=== PATIENT | male | born 1970 | race Caucasian/White ===

== ENCOUNTER 2021-01-04 11:41 | Outpatient (CLI) | payer OTHER, SELFPAY ==
--- NOTE | ~2021-01-04 | XR_ITS ---
EXAMINATION: XR chest 2V EXAM DATE: 01/04/2021 12:03 INDICATION: Essential hypertension. TECHNIQUE: Frontal and lateral projections of the chest obtained and reviewed. Comparison is made to prior examination from 10/20/2010. FINDINGS: The lungs are clear. There are no pleural effusions. The cardiomediastinal silhouette is within normal limits. There is no pneumothorax suspected. The bones and soft tissues are unremarkab le. IMPRESSION: No acute cardiopulmonary findings. Reviewed, dictated and finalized at location A.
== END 2021-01-04 11:42 | disposition home or self-care (01) ==
LOC: ANHIMG 11:51
PROVIDERS: PCP Physician Assistant; Visit Provider Physician Assistant
DX: I10 Essential (primary) hypertension (principal)
CPT/HCPCS: 71046

== ENCOUNTER 2022-01-10 10:57 | Emergency (ER) | payer OTHER, SELFPAY ==
--- NOTE | ~2022-01-10 | XR_ITS ---
EXAMINATION: XR tibia fibula LT 2V DATE: 01/10/2022 11:47 INDICATION: Lateral left lower leg pain 2 weeks post twisting injury TECHNIQUE: Anteroposterior and lateral views of the left tibia and fibula were obtained. COMPARISON: None. FINDINGS: Bone alignment is normal. No fracture. Joint spaces at the left knee, ankle and visualized mid and hi ndfoot are normal. No left knee or ankle joint effusion. Small plantar calcaneal spur. Focal mild sof t tissue swelling at the lateral aspect of the distal left calf potentially related to an underlying pain in the subcutaneous tissues. IMPRESSION: 1. No acute osseous abnormality. Reviewed, dictated and finalized at location A.
[2022-01-10 11:13] VITALS: BP 160/95; PULSE 83; RESP 18; TEMP 36.4; O2SAT 99
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
== END 2022-01-10 12:44 | disposition home or self-care (01) ==
PROVIDERS: Emergency Provider Nurse Practitioner Family
DX: M79.662 Pain in left lower leg (principal); Z95.5 Presence of coronary angioplasty implant and graft
CPT/HCPCS: 73590; 99213; G0463

== ENCOUNTER 2022-11-14 13:01 | Emergency (ER) | payer OTHER, SELFPAY ==
[2022-11-14 13:01] VITALS: BP 154/87; PULSE 110; RESP 15; TEMP 36.3; O2SAT 95
[2022-11-14] MEDS: TETRACAINE HCL 0.5% OPHTH SOLN 4 ML BTL 1 DROP RIGHT EYE (13:48)
[2022-11-14] MEDS: FLUORESCEIN SOD 1 MG/STRIP RIGHT EYE (13:48)
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
[2022-11-14 14:33] VITALS: BP 131/79; PULSE 75; RESP 18; TEMP 36.6; O2SAT 98
== END 2022-11-14 14:37 | disposition home or self-care (01) ==
PROVIDERS: Emergency Provider Emergency Medicine
DX: S05.01XA Injury of conjunctiva and corneal abrasion without foreign body, right eye, initial encounter (principal); W22.8XXA Striking against or struck by other objects, initial encounter; Z79.82 Long term (current) use of aspirin
CPT/HCPCS: 99283

== ENCOUNTER 2023-05-23 12:47 | Emergency (ER) | payer OTHER, SELFPAY ==
--- NOTE | ~2023-05-23 | XR_ITS ---
EXAMINATION: XR ankle LT min 3V DATE: 05/23/2023 13:43 INDICATION: Left ankle pain TECHNIQUE: Anteroposterior, lateral, mortise, and additional oblique view of the ankle were obtained. COMPARISON: None. FINDINGS: There is soft tissue swelling of ankle. No fracture or osteochondral lesion identified. Bon e alignment is normal. IMPRESSION: 1. Ankle soft tissue swelling without acute osseous abnormality. Reviewed, dictated and finalized at location L. HEAD
--- NOTE | ~2023-05-23 | XR_ITS ---
EXAMINATION: XR tibia fibula LT 2V INDICATION: Left leg pain TECHNIQUE: Two views of the left tibia and fibula are obtained. COMPARISON: 01/10/2022 FINDINGS: Bone alignment is normal. There is no fracture. There is soft tissue swelling of the leg. T here are some areas of soft tissue density seen in the medial fat of the leg, several of which have a n appearance similar to the comparison examination, possibly reflecting varicose veins. IMPRESSION: 1. No acute osseous abnormality identified. Soft tissue densities of the medial leg could reflect are as of varicose veins and/or soft tissue damage related to trauma. Reviewed, dictated and finalized at location L. TENANT [employer]ONEL IMPRESSION: 1. No acute osseous abnormality identified. Soft tissue densities of the medial leg could reflect areas of varicose veins and/or soft tissue damage related to trauma.
--- NOTE | ~2023-05-23 | US_ITS ---
EXAMINATION: US venous doppler [facility] DATE: 05/23/2023 17:35 INDICATION: leg injury . TECHNIQUE: Grayscale images without and with compression and Doppler images of the left lower extremi ty veins were obtained. COMPARISON: None FINDINGS: The left common femoral vein, profunda (deep) femoral vein, femoral vein, popliteal vein, peroneal v ein, posterior tibial veins, gastrocnemius vein, and greater saphenous vein are patent. IMPRESSION: Patent left lower extremity veins. No evidence of deep venous thrombosis. Reviewed, dictated and finalized at location K. CHOPPER
[2023-05-23 13:03] VITALS: BP 139/86; PULSE 99; RESP 20; TEMP 36.1; O2SAT 97
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
[2023-05-23] MEDS: IBUPROFEN 600 MG TABLET PO (16:09)
[2023-05-23 18:08] VITALS: BP 130/82; PULSE 98; RESP 18; TEMP 36.6; O2SAT 98
== END 2023-05-23 18:10 | disposition home or self-care (01) ==
PROVIDERS: Emergency Provider Emergency Medicine
DX: S80.12XA Contusion of left lower leg, initial encounter (principal); V86.55XA Driver of 3- or 4- wheeled all-terrain vehicle (ATV) injured in nontraffic accident, initial encounter
CPT/HCPCS: 73590; 73610; 93971; 99284; A4565; A9270